=== PATIENT | female | born 1945 | race Caucasian/White ===

== ENCOUNTER 2022-09-25 11:36 | Outpatient (CLI) | payer MEDICARE ==
--- NOTE | 2022-09-25 16:00 | XRAY Report ---
PROCEDURE: Calcaneus RT INDICATIONS: ACHILLES TENDINITIS, RIGHT HEEL PAIN TECHNIQUE: Two views of the calcaneus were acquired. COMPARISON: None. FINDINGS: Bones: No fractures or dislocations. No suspicious bony lesions. There is posterior and plantar ca lcaneal spurring. Soft tissues: No suspicious calcifications. Achilles tendon appears thickened distally at the calca nicole insertion, consistent with Achilles tendinitis.. IMPRESSION: 1. Posterior and plantar calcaneal fraying. 2. Achilles tendinitis. Reviewed by: Thomas Fulton MD on 09/25/2022 3:58 PM PDT Approved by: Thomas Fulton MD on 09/25/2022 3:58 PM PDT Station ID: [id number]
== END 2022-09-25 11:37 | disposition home or self-care (01) ==
LOC: DI.N 11:36
PROVIDERS: ATTEND Registered Nurse
DX: M76.61 Achilles tendinitis, right leg (principal); M77.31 Calcaneal spur, right foot

== ENCOUNTER 2022-10-07 08:00 | Outpatient (CLI) | payer MEDICARE ==
--- NOTE | 2022-10-07 17:06 | XRAY Report ---
PROCEDURE: Ankle 3 View RT INDICATIONS: RIGHT ANKLE PAIN TECHNIQUE: 3 views of the ankle were acquired. COMPARISON: None. FINDINGS: Bones: No acute fractures or dislocations. Ankle mortise is normally aligned. No suspicious bony l esions. Well-corticated ossification along the tip of the medial malleolus. Calcaneal enthesophytes. Soft tissues: Small tibiotalar joint effusion. Achilles tendon appears normal. IMPRESSION: Chronic avulsion fracture at the tip of the medial malleolus. No acute bony abnormality. Reviewed by: Juan Key on 10/07/2022 5:04 PM PDT Approved by: Juan Key on 10/07/2022 5:04 PM PDT Station ID: [id number]
== END 2022-10-07 23:59 | disposition home or self-care (01) ==
LOC: DI.WOS 08:00
PROVIDERS: ATTEND Physician Assistant Surgical
DX: S82.51XA Displaced fracture of medial malleolus of right tibia, initial encounter for closed fracture (principal)

== ENCOUNTER 2023-01-04 14:19 | Emergency (ER) | payer MEDICARE ==
[2023-01-04 14:41] VITALS: O2SAT 98
[2023-01-04 15:12] LABS: BILIRUBIN,URINE NEGATIVE (NEGATIVE); GLUCOSE, URINE (UA) NEGATIVE (NEGATIVE); KETONES,URINE (UA) NEGATIVE (NEGATIVE); LEUKOCYTE ESTERASE, URINE TRACE (NEGATIVE); NITRITE,URINE NEGATIVE (NEGATIVE); OCCULT BLOOD,URINE NEGATIVE (NEGATIVE); PROTEIN,URINE NEGATIVE (NEGATIVE); UROBILINOGEN,URINE 0.2 (NORMAL) E.U./dL (NORMAL)
[2023-01-04 15:14] LABS: CLARITY,URINE HAZY (CLEAR)
[2023-01-04 15:28] LABS: BASOPHILS # (AUTO) 0.1 10^3/uL (0.0-0.1); BASOPHILS % (AUTO) 0.8 %; EOSINOPHILS # (AUTO) 0.1 10^3/uL (0.0-0.7); EOSINOPHILS % (AUTO) 1.5 %; HCT - HEMATOCRIT 42.2 % (37.0-47.0); HGB - HEMOGLOBIN 13.7 g/dL (12.0-16.0); LYMPHOCYTES # (AUTO) 2.5 10^3/uL (1.5-3.5); LYMPHOCYTES % (AUTO) 34.3 %; MEAN CORPUSCULAR HEMOGLOBIN 30.4 pg (27.0-31.0); MEAN CORPUSCULAR HGB CONC 32.5 g/dL (32.0-36.0); MEAN CORPUSCULAR VOLUME 93.6 fL (81.0-99.0); MEAN PLATELET VOLUME 8.8 fL (7.9-10.8); MONOCYTES # (AUTO) 0.6 10^3/uL (0.0-1.0); MONOCYTES % (AUTO) 7.6 %; NEUTROPHILS % (AUTO) 55.1 %; PLT - PLATELET COUNT 251 10^3/uL (130-450); RED BLOOD COUNT 4.51 10^6/uL (4.20-5.40); RED CELL DISTRIBUTION WIDTH 12.8 % (12.0-15.0); WHITE BLOOD COUNT 7.2 x10^3/uL (4.8-10.8)
[2023-01-04 15:29] LABS: BACTERIA,URINE Rare /HPF (None Seen); RBC,URINE 0-5 /HPF (0-5); SQUAMOUS EPITHELIAL CELL,UR MANY Squamous (<= Few); WBC,URINE 0-3 /HPF (0-5)
[2023-01-04 15:37] LABS: ALBUMIN 4.3 g/dL (3.2-5.5); ALBUMIN/GLOBULIN RATIO 1.5 (1.0-2.2); BILIRUBIN,TOTAL 0.5 mg/dL (0.2-1.0); CALCIUM 9.3 mg/dL (8.5-10.3); POTASSIUM 4.3 mmol/L (3.5-5.0); TOTAL PROTEIN 7.1 g/dL (6.7-8.2)
--- NOTE | 2023-01-04 15:50 | ED Physician Documentation ---
PD HPI ABD PAIN - Stated complaint Stated Complaint: NAUSEA,LOWER BACK/ABD PX - Chief complaint Chief Complaint: Abd Pain - History obtained from History obtained from: Patient - History of Present Illness Timing - onset: How many days ago (4) Timing - duration: Days (4) Timing - details: Gradual onset, Still present Quality: Cramping, Aching, Pain Location: RLQ Radiation: Lower back Improved by: Laying still. No: Eating Worsened by: Moving. No: Eating Associated symptoms: Nausea. No: Fever, Vomiting, Diarrhea, Dysuria Recently seen: Clinic (seen at walk in and had UA showing UTI. The UA results are shown canceled in lab here, so not able to confirm and no culture done. Has had RLQ pain persist despite use of the antibiotic. Was told to follow up if not improved over few days.) Review of Systems Constitutional: denies: Fever, Chills GI: reports: Abdominal Pain, Nausea. denies: Vomiting, Constipation, Diarrhea : denies: Dysuria, Frequency Skin: denies: Rash PD PAST MEDICAL HISTORY - Past Medical History Cardiovascular: Hypertension Respiratory: None Neuro: None Endocrine/Autoimmune: Type 2 diabetes : Incontinence Psych: Depression Musculoskeletal: Osteoarthritis, Other - Past Surgical History General: Appendectomy /LASTING [employer] HAND METHOD: Hysterectomy, Mastectomy - Present Medications Home Medications: Ambulatory Orders Medication Instructions Recorded Confirmed atenoloL [Tenormin] 25 mg PO DAILY 11/04/22 01/04/23 lisinopriL [Lisinopril] 20 mg PO DAILY PM 11/04/22 01/04/23 - Allergies Allergies/Adverse Reactions: Allergies Allergy/AdvReac Type Severity Reaction Status Date / Time azithromycin Allergy Emesis Verified 01/04/23 14:28 - Social History Smoking Status: Former smoker PD ED PE NORMAL - Vitals Vital signs reviewed: Yes - General General: Alert and oriented X 3, No acute distress, Well developed/nourished - Cardiac Cardiac: RRR, No murmur - Respiratory Respiratory: Clear bilaterally - Abdomen Abdomen: Normal bowel sounds, Soft, Non distended, No organomegaly, Other (tender right lower without guarding nor percussion tenderness. ) - Female Female : Deferred - Rectal Rectal: Deferred - Back Back: No CVA TTP - Derm Derm: Normal color, Warm and dry, No rash Results - Vitals Vitals: Oxygen O2 Source Room air - Labs Labs: Laboratory Tests 01/04/23 01/04/23 01/04/23 14:43 15:19 15:19 WBC 7.2 RBC 4.51 Hgb 13.7 Hct 42.2 MCV 93.6 MCH 30.4 MCHC 32.5 RDW 12.8 Plt Count 251 MPV 8.8 Neut # (Auto) 4.0 Lymph # (Auto) 2.5 Otero # (Auto) 0.6 Eos # (Auto) 0.1 Baso # (Auto) 0.1 Absolute Nucleated RBC 0.00 Nucleated RBC % 0.0 Sodium 137 Potassium 4.3 Chloride 105 Carbon Dioxide 23 Anion Gap 9.0 BUN 19 Creatinine 1.0 Estimated GFR (MDRD) 54 L Glucose 95 Calcium 9.3 Total Bilirubin 0.5 AST 18 ALT 13 Alkaline Phosphatase 48 Total Protein 7.1 Albumin 4.3 Globulin 2.8 Albumin/Globulin Ratio 1.5 Lipase 47 Urine Color LIGHT YELLOW Urine Clarity HAZY Urine pH 6.0 Ur Specific [place] 1.010 Urine Protein NEGATIVE Urine Glucose (UA) NEGATIVE Urine Ketones NEGATIVE Urine Occult Blood NEGATIVE Urine Nitrite NEGATIVE Urine Bilirubin NEGATIVE Urine Urobilinogen 0.2 (NORMAL) Ur Leukocyte Esterase TRACE H Urine RBC 0-5 Urine WBC 0-3 Ur Squamous Epith Cells MANY Squamous H Urine Bacteria Rare Ur Microscopic Review INDICATED Urine Culture Comments NOT INDICATED - Rads (name of study) abd/pelvic CT Relevant Findings:: Prelim report reviewed (no acute abnormalities. scoliosis noted.), EMP independent interpretation of test PD Medical Decision Making - ED course Complexity details: reviewed results (UA showing not really signs of infection. Presuming the UA at Walk In was more evident, then I would say antibiotics are clearing that. However does not seem to be the cause of the pains. CT did not show obvious cause. Consider then muscular, nerve root, adhesions in abd, etc. ), considered differential (pain right abd and it is positional some, so co nsider lumbar nerve root or muscular. Will get CT to eval for stones, colitis, appendicitis, other causes. ), d/w patient ED course: she did not want any prescribed meds. Will use OTC. Her main concern was to ensure no more serious cause. Departure - Departure Disposition: 01 Home, Self Care Clinical Impression: Right lower quadrant abdominal pain Condition: Stable Record reviewed to determine appropriate education?: Yes Comments: Your urine sample today is looking reasonably clear. It does sound like the antibiotics are working on clearing the bladder infection/urinary tract infection. Your CT scan does not show any obvious cause for the pain. Consideration therefore would be things that would not show up on CT scans/blood test. Would have to consider things like musculoskeletal pain or possibly a pinched nerve or even within the abdominal cavity, some adhesion pain. These would not show up on imaging or test. Common treatment would be anti-inflammatories such as Aleve/naproxen 2 [id number] tablets 2-3 times daily regularly for the next 5 or 6 days. Add to that Tylenol every 4-6 hours if needed for pain. Finish out the Bactrim antibiotic that you are currently taking. Continue with the docusate stool softener for the next several days to a week. Follow-up with your primary care will or walk-in etc. if not improved over the next several days and resolved by 4 to 5 days. Return if other symptoms develop. Forms: PCP List Discharge Date/Time: 01/04/23 18:04
[2023-01-04] MEDS ORDERED: SODIUM CHLORIDE 0.9% 1,000 ML IV STA (16:06)
--- NOTE | 2023-01-04 17:30 | CT Report ---
PROCEDURE: ABDOMEN/PELVIS W INDICATIONS: left low abd/back pain for several days CONTRAST: 100mL Opti 320 TECHNIQUE: After the administration of IV contrast, 5 mm thick sections acquired from the diaphragms to the symp hysis. 5 mm thick coronal and sagittal reformats were acquired. For radiation dose reduction, the f ollowing was used: automated exposure control, adjustment of mA and/or kV according to patient size. COMPARISON: None FINDINGS: Image quality: Motion artifact is noted. Lung bases and heart: Unremarkable. Liver: No solid mass. Gallbladder and biliary tree: Within normal limits. Spleen: No splenomegaly. Pancreas: No pancreatic ductal dilation. Adrenals: No adrenal nodule. Kidneys and ureters: No hydronephrosis. No renal cystic lesion which requires follow up. No solid mas s. Bowel and peritoneum: In this patient with this given history, scrutiny is given to the appendix. No appendix can be seen, either normal or abnormal. No focal right lower quadrant inflammatory changes a re seen. No dilated loops of small bowel are seen. No significant colonic abnormality is seen. Lymph nodes: No central or retroperitoneal adenopathy. Vessels: No infrarenal aortic aneurysm. Atherosclerotic calcification is seen. PELVIS Reproductive organs: This patient is status post hysterectomy. No adnexal masses can be seen. Bladder: No abnormal wall thickening, accounting for underdistension. Pelvic lymph nodes: No pelvic adenopathy by size criteria. Bones: No aggressive osseous abnormality. Mild levoconvex scoliotic curvature is seen. Lumbar spine degenerative changes are seen, which are overall worst at the L5-S1 level. Other: No significant ventral or inguinal hernia. IMPRESSION: No imaging explanation is found for the patient's presenting symptoms. No appendix can be seen, either normal or abnormal. No focal right lower quadrant inflammatory change s are seen. Additional findings: Hysterectomy Levoconvex scoliotic curvature Focal L5-S1 degenerative change Reviewed by: Wild Edgar MD on 01/04/2023 4:28 PM MITCH Approved by: Wild Edgar MD on 01/04/2023 4:28 PM MITCH Station ID: [id number]
[2023-01-04] MEDS ORDERED: KETOROLAC 15 MG/ML VIAL IVP STA (17:45)
[2023-01-04 18:06] VITALS: BP 160/79
[2023-01-04] MEDS ORDERED: IOVERSOL 320 100 ML VIAL IVP ONE (18:08)
== END 2023-01-04 18:04 | disposition home or self-care (01) ==
LOC: ED 14:19
DX: R10.31 Right lower quadrant pain (principal); N39.0 Urinary tract infection, site not specified; Z87.891 Personal history of nicotine dependence
CPT/HCPCS: 36415; 74177; 80053; 81001; 83690; 85025; 96374; 99283; 99284; Q9967; 81003; 87086

== ENCOUNTER 2023-07-15 09:31 | Outpatient (CLI) | payer MEDICARE, MEDICAID ==
--- NOTE | 2023-07-16 09:56 | Mammography Report ---
BILATERAL DIGITAL DIAGNOSTIC MAMMOGRAM 3D/2D: 07/15/2023 CLINICAL: Diagnostic follow up of left breast cancer. Due for bilateral. Comparison is made to exams dated: 05/06/2022 mammogram, 06/20/2021 mammogram, 05/16/2021 mammogram, 04/21 mammogram, 05/13/2021 mammogram, and 01/25/2020 mammogram - [facility]. There are scattered areas of fibroglandular density in both breasts (category b / 25%-50% glandular t issue). There are benign post operative findings in the left breast. There is a possible asymmetry in the right breast middle depth central to the nipple seen on the cran iocaudal view only. This is not confirmed on additional views. No other significant masses, calcifications, or other findings are seen in either breast. There has been no significant interval change. IMPRESSION: BENIGN There is no mammographic evidence of malignancy. Stable post operative findings in the left breast. Exam findings were conveyed to the patient. A 1 year screening mammogram is recommended. This exam was interpreted at Station ID: [id number]. NOTE: For mammograms, a report in lay terms will be sent to the patient. Approximately 15% of breast malignancies will not be visualized mammographically. In the management of a palpable breast mass, a negative mammogram must not discourage biopsy of a clinically suspicious lesion. Electronically Signed By: Donovan Arango M.D. slc/:07/15/2023 10:37:25 letter sent: No_Letter ACR BI-RADS Category 2: Benign Finding(s) 3342F PARENCHYMAL PATTERN: (A) - The breast(s) demonstrate(s) scattered fibroglandular densities. BI-RADS CATEGORY: (2) - 2 RECOMMENDATION: (ANNUAL) - Recommend routine annual screening mammography. [id number] 1 year screening LATERALITY: (B)
== END 2023-07-15 09:32 | disposition home or self-care (01) ==
LOC: DI 09:31
PROVIDERS: ATTEND Internal Medicine
DX: C50.912 Malignant neoplasm of unspecified site of left female breast (principal)